=== PATIENT | male | born 1990 ===

== ENCOUNTER 2024-01-27 12:51 | Emergency (ER) | payer MEDICAID, SELFPAY ==
--- NOTE | 2024-01-27 13:54 | ED_ITS ---
HPI - General Adult General Chief complaint: Upper Respiratory Symptoms Stated complaint: vomiting body aches Time Seen by Provider: 01/27/24 14:27 History of Present Illness HPI narrative: patient complains of 2 days of feeling nauseous and vomiting starting yesterday and continuing today as well as feeling like he has a fever and feeling body aches He denies abdominal pain, he has had no diarrhea yet, the vomiting is not blood not coffee-grounds He denies any upper respiratory symptoms he has no runny nose no cough no runny nose no sore throat no ear pain no headache no skin rash Related Data Previous Rx's ?Medication ?Instructions ?Recorded acetaminophen 500 mg tablet 1,000 mg (2 x 500 mg) PO QID PRN 01/27/24 pain #30 tabs ibuprofen 400 mg tablet 400 mg PO Q6H PRN fever or pain 01/27/24 #14 tabs ondansetron 4 mg disintegrating 4 mg PO Q6H PRN nausea and 01/27/24 tablet vomiting #10 tabs Allergies Allergy/AdvReac Type Severity Reaction Status Date / Time morphine AdvReac Itching Verified 01/27/24 13:57 [facility] Past Medical History Source: nursing notes reviewed Social History Social History Advance Directives: No Physical Exam ED Vital Signs: Vital Signs - 24 hr 01/27/24 13:55 Temperature 99 F Pulse Rate 90 Respiratory Rate 18 Blood Pressure 117/61 Pulse Oximetry 98 Oxygen Delivery Method Room Air BMI result Body Mass Index 23.7 general appearance no distress The eyes no redness no discharge anicteric no pallor The sinuses nontender The pharynx no redness swelling or exudate, membranes are moist Neck is supple Chest clear to auscultation bilateral The abdomen is soft nontender Extremities full range of motion x4 Skin no rash Course Course Course Narrative: This is an RME: Additional HPI, ROS, PE not included below will be deferred to primary provider. 33 yo male presents with vomiting and body aches since this morning. No sick contacts. Denies chest pain, SOB, abdominal pain. Positive for chills, nausea, vomiting. Plan- viral testing patient was given Zofran and Tylenol with very good results right now he feels fine he is tolerating p.o. and his body aches are very improved He tested negative for COVID flu or RSV He is advised it may be food poisoning or more likely with the body aches and feeling febrile a viral illness and he is discharged with medication for symptoms At discharge he easily tolerates p.o. and is comfortable Medications Administered Discontinued Medications Generic Name Dose Route Start Last Admin Trade Name Magda PRN Reason Stop Dose Admin Acetaminophen 975 mg 01/27/24 14:41 01/27/24 14:52 Acetaminophen 325 Mg Tablet PO 01/27/24 14:42 975 mg ONCE ONE Administration Ondansetron HCl 4 mg 01/27/24 14:41 01/27/24 14:53 Ondansetron Odt 4 Mg Tab.Rapdis TRANSLINGU 01/27/24 14:42 4 mg ONCE ONE Administration Medical Decision Making Lab Data MDM Lab Attestation statement: I reviewed the patient's lab results. Labs: Lab Results 01/27/24 Range/Units 14:52 Influenza Type A (PCR) NEGATIVE (Negative) Influenza Type B (PCR) NEGATIVE (Negative) RSV RNA Qual (PCR) NEGATIVE (Negative) SARS-CoV-2 RNA (RT-PCR) NEGATIVE (Negative) Discharge Plan Discharge Clinical Impression: Acute viral syndrome, Vomiting Patient Disposition: Home, Self-Care Additional Instructions: test for COVID and flu were negative You likely have either mild food poisoning or a viral stomach bug, these usually get better within a day or 2 and are usually self-limited Drink plenty of fluids, stay hydrated Return any time any worse condition or any concerns Prescriptions: New ondansetron 4 mg tablet,disintegrating 4 mg PO Q6H PRN (Reason: nausea and vomiting) Qty: 10 0RF acetaminophen 500 mg tablet 1,000 mg PO QID PRN (Reason: pain) Qty: 30 0RF ibuprofen 400 mg tablet 400 mg PO Q6H PRN (Reason: fever or pain) Qty: 14 0RF Print Language: Turkish
[2024-01-27 13:55] VITALS: BP 117/61; PULSE 90; RESP 18; TEMP 37.2; O2SAT 98; BMI 23.7
[2024-01-27] MEDS: Acetaminophen 325 MG TABLET 975 MG PO (14:52)
[2024-01-27] MEDS: Ondansetron ODT 4 MG TAB.RAPDIS TRANSLINGU (14:53)
[2024-01-27 15:50] LABS: Influenza A PCR NEGATIVE (Negative); Influenza B PCR NEGATIVE (Negative); Resp Syncy Virus RNA Qual PCR NEGATIVE (Negative); SARS COV2 PCR INHOUSE NEGATIVE (Negative)
--- NOTE | 2024-01-27 16:33 | PC.NURSE ---
discharged by provider
== END 2024-01-27 16:33 | disposition home or self-care (01) ==
PROVIDERS: Physician Assistant; Emergency Provider Emergency Medicine
DX: B34.9 Viral infection, unspecified (principal); R11.10 Vomiting, unspecified
CPT/HCPCS: 0241U; 99282; 99283